=== PATIENT | male | born 1985 | race Caucasian/White ===

== ENCOUNTER 2018-11-17 17:32 | Emergency (ER) | payer OTHER ==
[2018-11-17] MEDS ORDERED: HYDROMORPHONE HCL INJ/PF 2 MG/ML AMPULE ONE (17:41)
[2018-11-17] MEDS ORDERED: HYDROMORPHONE HCL INJ/PF 2 MG/ML AMPULE IM ONE (17:41)
[2018-11-17] MEDS ORDERED: DIPH/PERTUSS(ACELL)/TETANUS VAC/PF 0.5 ML SYR (>=10YO) IM ONE (17:43)
[2018-11-17] MEDS ORDERED: HYDROMORPHONE HCL INJ/PF 2 MG/ML AMPULE IV ONE (17:44)
[2018-11-17] MEDS ORDERED: KETOROLAC TROMETHAMINE INJ/PF 30 MG/1 ML SDV IV ONE (17:58)
[2018-11-17] MEDS: NORMAL SALINE 1000 ML 1,000 ML IV PRN ×2 (18:03→19:01)
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
[2018-11-17] MEDS ORDERED: FENTANYL CITRATE INJ/PF 100 MCG/2 ML AMPUL IV ONE ×2 (18:34→19:22)
[2018-11-17 20:47] VITALS: BP 139/77
== END 2018-11-17 20:35 | disposition short-term general hospital (02) ==
LOC: ER 17:32
DX: T22.291A Burn of second degree of multiple sites of right shoulder and upper limb, except wrist and hand, initial encounter (principal); T22.211A Burn of second degree of right forearm, initial encounter; T23.201A Burn of second degree of right hand, unspecified site, initial encounter; T20.112A Burn of first degree of left ear [any part, except ear drum], initial encounter; T20.111A Burn of first degree of right ear [any part, except ear drum], initial encounter; T20.10XA Burn of first degree of head, face, and neck, unspecified site, initial encounter; T22.192A Burn of first degree of multiple sites of left shoulder and upper limb, except wrist and hand, initial encounter; X08.8XXA Exposure to other specified smoke, fire and flames, initial encounter; Y93.89 Activity, other specified; Y92.007 Garden or yard of unspecified non-institutional (private) residence as the place of occurrence of the external cause; Z23 Encounter for immunization
CPT/HCPCS: 96376; 99291; 96361; 90471; 96374; 96375; 90715; J3010; J1885; J1170; J7030